=== PATIENT | female | born 1935 | race Asian ===

== ENCOUNTER 2017-10-07 11:08 | Emergency (ER) | payer OTHER ==
[~2017-10-07 11:08] MED LIST: ALDACTONE25 MG PO; AMLODIPINE BESYL5 M1 PO; ASP325 PO; ASPIRIN81 MG PO; ATORVASTATIN CA40 M1 PO; BACLOFEN20 MG PO; CARVEDILOL3.125 M1 PO; CLOPIDOGREL75 M1 PO; GLU500 PO; METOPROLOL SUCC50 M2 PO; PRILOSEC20 MG PO; TRAMADOL HCL50 MG PO; ZESTRIL5 MG PO
[2017-10-07 11:46] LABS: BASOPHIL % 1.5 % (0-2); PLATELET COUNT 374 x10^3mcL (130-400); RED CELL DISTRIBUTION WIDTH 13.9 % (11.5-14.5)
[2017-10-07 12:10] LABS: FREE T4 1.11 ng/dL (0.76-1.46); FREE THYROXINE INDEX 2.7 ug/dL (1.4-4.5); T4(THYROXINE) 8.2 ug/dL (4.7-13.3)
[2017-10-07 12:20] LABS: CALCIUM 9.3 mg/dL (8.5-10.1); CARBON DIOXIDE 29.4 mmol/L (21-32); CHLORIDE SERUM 103 mmol/L (98-107); CREATININE SERUM 1.2 mg/dL (0.6-1.0); GLUCOSE SERUM 113 mg/dL (74-106); POTASSIUM SERUM 4.5 mmol/L (3.5-5.1); SODIUM SERUM 138 mmol/L (136-145)
[2017-10-07 12:24] LABS: ALKALINE PHOSPHATASE 83 U/L (46-116); ALT/SGPT 14 U/L (14-59); AST/SGOT 12 U/L (15-37); BILIRUBIN TOTAL 0.28 mg/dL (0.20-1.00); CHOLESTEROL 194 mg/dL (<200); CHOLESTEROL/HDL RATIO 5.5; HDL CHOLESTEROL 35 mg/dL (40-60); LIPASE 116 IU/L (73-393); TOTAL PROTEIN, SERUM 7.7 g/dL (6.4-8.2); TRIGLYCERIDES 121 mg/dL (<150)
[2017-10-07 12:34] LABS: T3 TOTAL 0.81 ng/mL
[2017-10-07 12:35] LABS: ALBUMIN 3.1 g/dL (3.4-5.0)
[2017-10-07 13:15] VITALS: BP 132/76
== END 2017-10-07 13:15 | disposition left against medical advice (07) ==
LOC: ED 11:08
PROVIDERS: Specialist
DX: R07.89 Other chest pain (principal); I10 Essential (primary) hypertension; M19.90 Unspecified osteoarthritis, unspecified site; J45.909 Unspecified asthma, uncomplicated; Z95.5 Presence of coronary angioplasty implant and graft; Z86.79 Personal history of other diseases of the circulatory system
CPT/HCPCS: 83880; 84439

== ENCOUNTER 2019-07-14 11:16 | Inpatient (IN) | payer OTHER ==
[~2019-07-14] VITALS: Ht 149.9 cm; Wt 72.2 kg
--- NOTE | 2019-07-14 11:32 | NUR ---
PER MEDIC FAMILY STS THAT PT WAS HAVING WEAKNESS AND NOT ACTING WITHIN HER NORMAL LIMITS. PER MEDIC FAMILY STS "SLURRED SPEACH" EARLIER THIS MORNING. PER MEDIC PT HAS "STENS", BG 187, 20G L HAND, 300CC BOLUS. PER FAMILY PT COULD NOT WALK OR TALK OFF AND ON FOR TWO DAYS. PER FAMILY PT IS BLINF IN LEFT EYE. RIGHT EYE IS EQUAL AND REACTIVE TO LIGHT. PER PT SHE IS HAVING "PRESSURE CHEST PAIN AND SOB". NO FACIAL DROOP NOTED, +RETURNED CASE INSPECTOR STRENGTHS. PT ABLE TO ASWER QUESTION FROM FAMILY IT "FAROESE". +CAP REFILL LESS THAN 3 SEC ALL EXTREMITIES. VSS. RESP E/U. LAB AT BEDSIDE. WILL CONTINUE TO MONITOR. PT PLACED ON FULL CM. OXYGEN 2L NC.
[2019-07-14 11:56] LABS: BASOPHIL % 0.5 % (0-2); PLATELET COUNT 287 x10^3mcL (130-400); RED CELL DISTRIBUTION WIDTH 13.8 % (11.5-14.5)
[2019-07-14 12:06] LABS: CALCIUM 8.7 mg/dL (8.5-10.1); CHLORIDE SERUM 113 mmol/L (98-107); CREATININE SERUM 1.6 mg/dL (0.6-1.0); GLUCOSE SERUM 144 mg/dL (74-106); POTASSIUM SERUM 4.5 mmol/L (3.5-5.1); SODIUM SERUM 145 mmol/L (136-145)
[2019-07-14 12:13] LABS: ALKALINE PHOSPHATASE 78 U/L (46-116); ALT/SGPT 13 U/L (14-59); AST/SGOT 3 U/L (15-37); BILIRUBIN TOTAL 0.33 mg/dL (0.20-1.00); TOTAL PROTEIN, SERUM 7.5 g/dL (6.4-8.2)
[2019-07-14 12:19] LABS: ALBUMIN 3.3 g/dL (3.4-5.0)
--- NOTE | 2019-07-14 12:41 | NUR ---
LAB AT BEDSIDE. DR. RODRIGUES INFORMED OF SEPSIS PROTOCOL. PT HR 111, RR 35.
--- NOTE | 2019-07-14 12:41 | NUR ---
NO OTHER ORDERS AT THIS TIME.
[2019-07-14 12:48] LABS: microscopic required? YES; urine erythrocyte 3+ (NEGATIVE)
--- NOTE | 2019-07-14 12:48 | NUR ---
LAB AT BEDSIDE.
--- NOTE | 2019-07-14 13:08 | NUR ---
SPOKE TO DR TAPIA VIA PHONE, [facility] MEDS FOR VQ SCAN WILL ARRIVE IN APPROX 3-4 HRS
--- NOTE | 2019-07-14 14:10 | NUR ---
REPORT GIVEN TO BEAU JIMENEZ TO ASSUME CARE OF PT.
--- NOTE | 2019-07-14 14:43 | NUR ---
RECEIVED PT FROM ED VIA [employer], CAME IN DUE TO SLURRED SPEECH. PT IS AAOX4. DENIES HEADACHE/DIZZINESS. ABLE TO FOLLOW COMMANDS. SPEECH IS CLEAR. 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 NO FACIAL DROOP. RIGHT PUPIL IS BRISK AND REACTIVE TO LIGHT. W/ PROSTHESIS ON THE LEFT EYE. NO SOB NOTED, LUNG SOUNDS CTA. DENIES CHEST PAIN/PRESSURE, ST W/ PVC'S, IG=[id number]. DENIES ABDOMINAL DISCOMFORT. LAST BM WAS 2 DAYS AGO. C/O BURNING SENSATION ON URINATION. W/ ECCHYMOSIS ON THE RIGHT HAND, JACKIE. IV SITE PATENT AND INTACT. SIDE RAILS UPX2. CALL LIGHT ON REACH. MD'S DAUGHTER AT BEDSIDE. PRIMARY NURSE JERMAN AT BEDSIDE FOR CONTINUITY OF CARE
[2019-07-14 15:03] VITALS: BP 152/96
[2019-07-14 15:23] VITALS: Ht 149.9 cm; Wt 72.2 kg
[2019-07-14 16:02] LABS: CHOLESTEROL/HDL RATIO 5.4
[2019-07-14 16:26] VITALS: BP 159/79
--- NOTE | 2019-07-14 18:24 | NUR ---
NOTED PT ALSO HAS A LEFT ARM ECCHYMOSIS, JACKIE
--- NOTE | 2019-07-14 18:38 | NUR ---
CHANGED PT TO ROOM 244 A, WAS TRYING TO GET OUT OF BED AND IS AT RISK FOR FALLING. WILL CONTINUE TO MONITOR.
--- NOTE | 2019-07-14 18:58 | NUR ---
NO ACUTE CHANGES AT THIS TIME. NO ACUTE RESP DISTRESS OR SOB NOTED. WILL ENDORSE TO INCOMING RN.
--- NOTE | 2019-07-14 19:40 | NUR ---
RECEIVED REPORT FROM AM NURSE. PT IN BED WITH EYES CLOSED AND FAMILY AT BEDSIDE. PT AAOX2, GRENADIAN SPEAKING ONLY. CONFUSED ABOUT WHERE SHE IS. WILL REORIENT NECESSARY. ON TELE #6 ST WITH PVC. DENIES CP/PRESSURE AT THIS TIME. PALPABLE PUSES TO BLE AND BUE. NO EDEMA NOTED. LUNG SOUNDS CTA. BREATHING EVEN AND UNLABORED ON RA. NO ACUTE DISTRESS NOTED. ABD SOFT AND ROUND. ACTIVE BS X4 QUAD. DENIES N//V/D. VOIDS ON BSC. INCONTINENT TO URINE AT TIMES. GENERALIZED WEAKNESS. AMBULATORY WITH ASSIST. BRUISES TO BUE. IV TO RAC FLUSHING WELL. SITE FREE FROM REDNESS AND SWELLING. BED AT LOWEST SETTING. SIDE RAILS X2 UP. CALL LIGHT WITHING REACH. WILL CONTINUE TO MONITOR.
[2019-07-14 20:36] VITALS: BP 185/89
--- NOTE | 2019-07-14 22:00 | NUR ---
PT C/O DIFFICULTY SLEEPING. MEDICATED WITH PRN AMBIEN PER JAN. PT IS RESTLESS AND CONTINUES TRAYING GET OUT OF BED WITHOUT CALLING FOR HELP. WILL CONTINUE TO MONITOR.
--- NOTE | 2019-07-15 01:00 | NUR ---
PT CONTINUES GETTING OUT OF BED. IS VERY ANXIOUS AND DOES NOT WANT HELP FROM STAFF. MEDICATED WITH PRN ATIVAN PER JAN. WILL CONTINUE TO MONITOR.
[2019-07-15 05:44] LABS: BASOPHIL % 0.3 % (0-2); PLATELET COUNT 303 x10^3mcL (130-400); RED CELL DISTRIBUTION WIDTH 13.6 % (11.5-14.5)
[2019-07-15 05:46] VITALS: BP 153/81
[2019-07-15 05:48] LABS: ALKALINE PHOSPHATASE 68 U/L (46-116); ALT/SGPT 11 U/L (14-59); AST/SGOT 11 U/L (15-37); BILIRUBIN TOTAL 0.46 mg/dL (0.20-1.00); CALCIUM 8.5 mg/dL (8.5-10.1); CARBON DIOXIDE 15.4 mmol/L (21-32); CHLORIDE SERUM 111 mmol/L (98-107); CREATININE SERUM 1.2 mg/dL (0.6-1.0); GLUCOSE SERUM 128 mg/dL (74-106); MAGNESIUM 1.6 mg/dL (1.8-2.4); POTASSIUM SERUM 3.6 mmol/L (3.5-5.1); SODIUM SERUM 142 mmol/L (136-145); TOTAL PROTEIN, SERUM 6.9 g/dL (6.4-8.2)
[2019-07-15 05:50] LABS: ALBUMIN 2.9 g/dL (3.4-5.0)
--- NOTE | 2019-07-15 05:57 | NUR ---
PT AWAKE MOST OF THE NIGHT. CONTINUES TO GET UP OFTEN TO USE COMMODE. CONTINUES TO NOT CALL FOR HELP WHEN GETTING OUT OF BED. BED ALARM ON. N0 ACUTE DISTRESS NOTED. ALL NEEDS ASSESSED AND ATTENDED TO. BED AT LOWEST SETTING. SIDE RAILS X2 UP. CALL LIGHT WITHING REACH. WILL ENDORSE CARE TO AM NURSE.
--- NOTE | 2019-07-15 07:22 | NUR ---
PT C/O UPPER BACK PAIN RATED AT 6/10. MEDICATED WITH PRN NORCO PER JAN. ENDORSED CARE TO TNOY STOLL.
--- NOTE | 2019-07-15 07:30 | NUR ---
PT ENDORSE TO ME THIS MORNING. LAYING IN BED/ TRYING TO GET OUT OF BED. TRIED TO COMMUNICATE TO PT IF SHE HAS DISCOMFORT, STATED YES, WILL MEDICATE FOR DISCOMFORT. AA/0 X4. TELE 6 SR WITH BBB, HR 98. NO SIGN OF CP OR PRESSURE. BREATHING EVEN AND UNLABORED ON RA, NO ACUTE RESP DISTRESS OR SOB NOTED. VOIDS FREELY AND INCONTINENT AT TIMES. GEN WEAKNESS/ NEEDS ASSIST TO GET OUT OF BED. BED ALARM ON DUE TO SAFTEY. IV TO THE RAC INTACT AND PATENT/ NO RENDESS OR SWELLING NOTED. CALL LIGHT IN REACH, X2 SIDE RAILS UP/ BY NURSING STATION. WILL CONTINUE TO MONITIOR.
--- NOTE | 2019-07-15 08:30 | NUR ---
PT LAYING IN BED RESTING, FAMILY AT BEDSIDE. DR. DANIEL AT BEDSIDE GOING OVER PLAN WITH PT DAUGHTER. WILL CONTINUE TO MONITOR.
[2019-07-15 08:56] VITALS: BP 105/63
--- NOTE | 2019-07-15 11:48 | NUR ---
PT C/O BACK PAIN 10/, MEDICATED PER EMAR. WILL CONTINUE TO MONITOR. FAMILY AT BEDSIDE.
[2019-07-15 13:45] VITALS: BP 109/66
--- NOTE | 2019-07-15 15:02 | NUR ---
PT IS UP IN THE BSC, C/O OF BACK PAIN 03/30, MEDICATED PER EMAR. WILL CONTINUE TO MONITOR.
[2019-07-15 17:17] VITALS: BP 104/48
--- NOTE | 2019-07-15 18:29 | NUR ---
PT C /O OF BACK PAIN 08/30, [place] BP 115/60 HR 88, MEDICATED PER EMAR. WILL CONTINUE TO MONITOR.
--- NOTE | 2019-07-15 18:32 | NUR ---
NO ACUTE CHANGES AT THIS TIME. NO ACUTE RESP DISTRESS OR SOB NOTED/ DENIES ANY CP OR PRESSURE. CALL LIGHT IN REACH. BED IN LOW POSITION,BY NURSING STATION, X2 SIDE RAILS UP/ BED ALARM ON. WILL ENDORSE TO INCOMING RN.
[2019-07-15 21:00] VITALS: BP 110/57
--- NOTE | 2019-07-15 23:04 | NUR ---
RECEIVED PT IN BED AT 1930 IN BD AAO X3 PER FAMILY PT SPEAKS [place] ONLY , LUNG PSUNDS DIMINISHED NO RESP DISTRESS NOTED, ON TELE NUMBER 6 THAT SHOWS NSR WITH BBB, HL INTACT FLUSHING WELL , BED ALARM ON FOR SAFETY .
--- NOTE | 2019-07-16 04:11 | NUR ---
I HAVE REVIEWED THE DATA COLLECTION BY ANALYTICS CONSULTANT (NAME):SCARLET SUN ENTERED ON (DATE/TIME): I CONCUR WITH THE DATA AND ANY EXCEPTIONS OR COMMENTS ARE LISTED BELOW:
--- NOTE | 2019-07-16 05:00 | NUR ---
PT'S IN BED WITH EYES CLOSED .TELE NSR WITH BBB.
[2019-07-16 05:55] VITALS: BP 95/60
--- NOTE | 2019-07-16 06:38 | NUR ---
NO CHANGES OF CONDITION NOTED, ALL DUE MEDS GIVEN NO REACTION NOTED, HL INTACT FLUSHING WLL , TELE NSR WITH BBB.
[2019-07-16 06:59] LABS: BASOPHIL % 0.7 % (0-2); PLATELET COUNT 276 x10^3mcL (130-400); RED CELL DISTRIBUTION WIDTH 14.2 % (11.5-14.5)
[2019-07-16 07:14] LABS: ALKALINE PHOSPHATASE 62 U/L (46-116); ALT/SGPT 12 U/L (14-59); AST/SGOT 10 U/L (15-37); BILIRUBIN TOTAL 0.3 mg/dL (0.20-1.00); CALCIUM 8.2 mg/dL (8.5-10.1); CARBON DIOXIDE 18.6 mmol/L (21-32); CHLORIDE SERUM 107 mmol/L (98-107); CREATININE SERUM 1.9 mg/dL (0.6-1.0); GLUCOSE SERUM 150 mg/dL (74-106); MAGNESIUM 1.8 mg/dL (1.8-2.4); POTASSIUM SERUM 4.1 mmol/L (3.5-5.1); SODIUM SERUM 141 mmol/L (136-145); TOTAL PROTEIN, SERUM 6.9 g/dL (6.4-8.2)
[2019-07-16 07:25] VITALS: BP 109/64
--- NOTE | 2019-07-16 07:27 | NUR ---
NORCO FOR HEADACHE GIVEN .
--- NOTE | 2019-07-16 07:29 | NUR ---
ASSUMED CARE OF PATIENT. SEEN AWAKE AND ALERT THIS MORNING. COMPLAINTS OF BACK PAIN, MEDICATED BY PREVIOUS NURSE. NO APPARENT DISTRESS NOTED. IV TO RAC SALINE LOCKED. WILL CONTINUE TO MONITOR.
--- NOTE | 2019-07-16 09:14 | NUR ---
PATIENT BP 89/56. CARVEDILOL AND LISINOPRIL HELD AT THIS TIME. PLAN TO RECHECK BEFORE 1000. PATIENT HAS 2/10 BACK PAIN AT THIS TIME. NO APPARENT DISTRESS NOTED. GRANDDAUGHTER AT BEDSIDE.
[2019-07-16 09:58] VITALS: BP 105/46
--- NOTE | 2019-07-16 09:58 | NUR ---
BP 105/46. BP MEDICATIONS HELD.
--- NOTE | 2019-07-16 11:29 | NUR ---
PATIENT SEEN WORKING WITH PHYSICAL THERAPY
--- NOTE | 2019-07-16 12:11 | NUR ---
PATIENT COMPLAINING OF 6/10 HEADACHE. PRN DORACO PROVIDED. DAUGHTER AT BEDSIDE.
[2019-07-16 12:21] VITALS: BP 102/63
[2019-07-16 13:07] VITALS: BP 102/63
--- NOTE | 2019-07-16 14:20 | NUR ---
PER KAMAR SOSA, PENDING PATIENTS INSURANCE FOR TRANSPORT.
--- NOTE | 2019-07-16 15:50 | NUR ---
PER DAUGHTER YAMILKA BARRIOS, TO BE HERE AROUND 6PM TO SIGN DISCHARGE PAPERWORK AND CREDIT RATING INSPECTOR PATIENT.
[2019-07-16 16:15] VITALS: BP 99/62
--- NOTE | 2019-07-16 16:31 | NUR ---
PT WAS SEEN FOR DYSPHAGIA. PT WAS ABLE TO SAFELY SWALLOW MS DIET WITH CHOPPED MEAT AND VEG WITH THIN LIQUID. PT HAD MILD DIFFICULTY WITH MASTICATION SKILLS FOR REGULAR DIET. RECOMMENDATION MS DIET WITH CHOPPED MEAT WITH VEG WITH THIN LIQUID SMALL BITES AND SIPS ONLY 1:1 SUPERVISION.
--- NOTE | 2019-07-16 17:27 | NUR ---
PATIENT COMPLAINING OF HEAD AND NECK PAIN. ALTAGRACIA OGDEN PROVIDED.
--- NOTE | 2019-07-16 18:47 | NUR ---
PATIENT IV REMOVED WITH CATHETER INTACT. TELEMONITOR REMOVED. NO COMPLAINTS OF PAIN OR DISCOMFORT. NO APPARENT DISTRESS NOTED. DISCHARGE INSTRUCTION AND EDUCATION PROVIDED WITH DAUGHTER AT SIDE.
== END 2019-07-16 18:53 | disposition home health service (06) | DRG 64 ==
LOC: ED → DU 13:07
PROVIDERS: Emergency Medicine; ADMIT Internal Medicine Pulmonary Disease
DX: I63.81 Other cerebral infarction due to occlusion or stenosis of small artery (principal); N17.0 Acute kidney failure with tubular necrosis; N39.0 Urinary tract infection, site not specified; R47.81 Slurred speech; E11.319 Type 2 diabetes mellitus with unspecified diabetic retinopathy without macular edema; I10 Essential (primary) hypertension; I25.10 Atherosclerotic heart disease of native coronary artery without angina pectoris; H54.62 Unqualified visual loss, left eye, normal vision right eye; G89.29 Other chronic pain; M54.5 Low back pain; I25.2 Old myocardial infarction; Z79.4 Long term (current) use of insulin; Z79.82 Long term (current) use of aspirin; Z68.32 Body mass index [BMI] 32.0-32.9, adult; Z79.84 Long term (current) use of oral hypoglycemic drugs
CPT/HCPCS: 78598; 83880; 92526-GN; 92610-GN; 97112-GP; 97116-GP; 97530-GP; A9540; G0378; J0696; J7030; J7060; Q0092

== ENCOUNTER 2019-09-17 10:52 | Emergency (ER) | payer OTHER ==
[~2019-09-17] VITALS: Ht 154.9 cm; Wt 104.3 kg
[2019-09-17 10:53] VITALS: Ht 154.9 cm; Wt 104.3 kg
[2019-09-17 11:24] LABS: BASOPHIL % 0.9 % (0-2); PLATELET COUNT 282 x10^3mcL (130-400); RED CELL DISTRIBUTION WIDTH 14.4 % (11.5-14.5)
[2019-09-17 11:33] LABS: CALCIUM 8.5 mg/dL (8.5-10.1); CHLORIDE SERUM 115 mmol/L (98-107); CREATININE SERUM 1.2 mg/dL (0.6-1.0); GLUCOSE SERUM 140 mg/dL (74-106); POTASSIUM SERUM 3.9 mmol/L (3.5-5.1); SODIUM SERUM 145 mmol/L (136-145)
[2019-09-17 11:39] LABS: ALKALINE PHOSPHATASE 72 U/L (46-116); ALT/SGPT 20 U/L (14-59); AST/SGOT 15 U/L (15-37); BILIRUBIN TOTAL 0.16 mg/dL (0.20-1.00); TOTAL PROTEIN, SERUM 7.5 g/dL (6.4-8.2)
[2019-09-17 11:46] LABS: ALBUMIN 3.2 g/dL (3.4-5.0)
[2019-09-17 13:30] VITALS: BP 154/98
== END 2019-09-17 13:30 | disposition home or self-care (01) ==
LOC: ED 10:52
PROVIDERS: Emergency Medicine
DX: E86.0 Dehydration (principal); R07.89 Other chest pain; M54.6 Pain in thoracic spine; M25.511 Pain in right shoulder; I10 Essential (primary) hypertension; E11.9 Type 2 diabetes mellitus without complications
CPT/HCPCS: J1885; Q0092